=== PATIENT | female | born 1995 | race Caucasian/White ===

== ENCOUNTER 2022-07-08 02:55 | Inpatient (IN) ==
[2022-07-08] MEDS ORDERED: ACETAMINOPHEN 325 MG TABLET PO PRN ×2 (03:07→15:13)
[2022-07-08] MEDS ORDERED: METHYLERGONOVINE 0.2 MG/1 ML AMP IM PRN (03:07)
[2022-07-08] MEDS ORDERED: ONDANSETRON 4 MG/2 ML VIAL IV PRN (03:07)
[2022-07-08] MEDS ORDERED: CARBOPROST TROMETHAMINE 250 MCG/ML AMP IM PRN (03:07)
[2022-07-08] MEDS ORDERED: OXYTOCIN/LR 20 UNIT/1,000 ML BAG IV ONE ×2 (03:07→15:13)
[2022-07-08] MEDS ORDERED: BUTORPHANOL 2 MG/ML VIAL IV PRN (03:07)
[2022-07-08] MEDS ORDERED: TRANEXAMIC ACID 1,000 MG in SODIUM CHLORIDE 0.9% 100 ML IV PRN (03:07)
[2022-07-08] MEDS ORDERED: miSOPROStoL 200 MCG TABLET RECTAL PRN (03:07)
[2022-07-08] MEDS ORDERED: LACTATED RINGERS 1,000 ML IV SCH ×2 (03:30→09:00)
[2022-07-08] MEDS ORDERED: OXYTOCIN/LR 20 UNIT/1,000 ML BAG IV SCH (03:30)
[2022-07-08 04:19] LABS: Basophils % 0.3 % (0.0-0.8); Eosinophils # 0.1 10*3/uL (0.0-0.87); Eosinophils % 0.9 % (0.00-10.9); Hemoglobin 12.3 GM/DL (12.0-16.0); Immature Granulocytes % 0.8 %; Immature Granulocytes Absolute 0.06 #; Lymphocytes # 1.7 10*3/uL (1.4-4.0); Lymphocytes % 20.8 % (21.3-54.2); Mean Corpuscular HGB Conc 31.5 GM/DL (32-36); Mean Corpuscular Volume 77.5 FL (87-102); Mean Platelet Volume 11.8 FL (9.6-12.0); Monocytes # 0.6 10*3/uL (0.11-0.8); Monocytes % 7.7 % (1.7-12.7); Neutrophils % 69.5 % (38.7-73.9); Platelet Count 150 T/CUMM (130-400); Red Blood Count 5.03 MC/CUMM (3.8-5.5); Red Cell Distribution Width 14.6 % (9.3-17.3); White Blood Count 7.97 T/CUMM (4-12)
[2022-07-08] MEDS ORDERED: OXYTOCIN/LR 30 UNIT/1,000 ML BAG IV ONE (04:30)
[2022-07-08] MEDS ORDERED: LACTATED RINGERS 1,000 ML IV ONE (08:38)
[2022-07-08] MEDS ORDERED: ePHEDrine 50 MG/ML VIAL IV PRN (08:38)
[2022-07-08] MEDS ORDERED: CITRIC ACID/SODIUM CITRATE 30 ML UDCUP PO ONE (08:38)
[2022-07-08] MEDS ORDERED: FAMOTIDINE 20 MG/2 ML VIAL IV ONE (08:38)
[2022-07-08] MEDS ORDERED: diphenhydrAMINE 50 MG/1 ML VIAL IV PRN ×2 (08:39)
[2022-07-08] MEDS ORDERED: hydrOXYzine HCL 25 MG/1 ML VIAL IM PRN (08:39)
[2022-07-08] MEDS ORDERED: PROMETHAZINE 25 MG/1 ML VIAL IM ONE (08:39)
[2022-07-08] MEDS ORDERED: NALOXONE 0.4 MG/ML VIAL IV PRN (08:39)
[2022-07-08] MEDS ORDERED: fentaNYL 2 MCG/ROPIV 0.2% EPID 100 ML EPIDURAL SCH (09:00)
[2022-07-08 10:29] LABS: Bilirubin,Urine Negative (Negative); Blood, Urine Negative (Negative); Glucose,Urine (UA) Negative (Negative); Ketones,Urine Negative (Negative); Nitrite,Urine Negative (Negative); Protein,Urine Negative (Negative); Urine Appearance Clear (Clear); Urine Color Yellow (Yellow); Urine Specific Gravity 1.015 (1.001-1.035)
[2022-07-08 10:30] LABS: Urine Urobilinogen 0.2 eU/dL (<2.0)
[2022-07-08] MEDS ORDERED: SODIUM CHLORIDE 0.9% 0 ML IV ONE (11:51)
[2022-07-08] MEDS ORDERED: TRANEXAMIC ACID 1,000 MG/10 ML VIAL ONE (11:51)
[2022-07-08] MEDS ORDERED: miSOPROStoL 200 MCG TABLET ONE (11:51)
[2022-07-08] MEDS ORDERED: METHYLERGONOVINE 0.2 MG/1 ML AMP ONE (11:51)
[2022-07-08] MEDS ORDERED: CARBOPROST TROMETHAMINE 250 MCG/ML AMP IM ONE (11:52)
[2022-07-08 12:39] LABS: Cord Venous Blood HCO3 22.4 MMOL/L; Cord Venous Blood PCO2 45.4 MMHG; Cord Venous Blood PO2 26.3
[2022-07-08] MEDS ORDERED: oxyCODONE/ACETAMINOPHEN 5-325 MG TABLET PO PRN ×2 (15:13)
[2022-07-08] MEDS ORDERED: DIPH/TET/ACEL PERT BOOSTER VACCINE 0.5 ML VIAL IM ONE (15:13)
[2022-07-08] MEDS ORDERED: BISACODYL 10 MG SUPP RECTAL PRN (15:13)
[2022-07-08] MEDS ORDERED: LANOLIN 50% CREAM 0.3 OZ TUBE TOP PRN (15:13)
[2022-07-08] MEDS ORDERED: RHO(D) IMMUNE GLOBULIN 300 MCG SYRINGE IM ONE (15:13)
[2022-07-08] MEDS ORDERED: MEASLES/MUMPS/RUBELLA VACCINE 0.5 ML VIAL SUBCUT ONE (15:13)
[2022-07-08] MEDS ORDERED: HYDROCORTISONE 2.5% RECTAL CREAM 30 GM TUBE TOP PRN (15:13)
[2022-07-08] MEDS ORDERED: WITCH HAZEL PADS 100/JAR TOP PRN (15:13)
[2022-07-08] MEDS ORDERED: BENZOCAINE 20%/MENTHOL 0.5% SPRAY 56 GM CAN TOP PRN (15:13)
[2022-07-09] MEDS: IBUPROFEN 800 MG TABLET PO PRN ×2 (00:08→20:03)
[2022-07-09 06:17] LABS: Basophils % 0.3 % (0.0-0.8); Eosinophils # 0.1 10*3/uL (0.0-0.87); Eosinophils % 0.8 % (0.00-10.9); Hematocrit 37.1 VOL% (35.7-47.0); Hemoglobin 11.8 GM/DL (12.0-16.0); Immature Granulocytes % 0.5 %; Immature Granulocytes Absolute 0.05 #; Lymphocytes # 1.7 10*3/uL (1.4-4.0); Lymphocytes % 16.7 % (21.3-54.2); Mean Corpuscular HGB Conc 31.8 GM/DL (32-36); Mean Corpuscular Volume 78.3 FL (87-102); Mean Platelet Volume 11.8 FL (9.6-12.0); Monocytes # 0.7 10*3/uL (0.11-0.8); Monocytes % 6.7 % (1.7-12.7); Platelet Count 145 T/CUMM (130-400); Red Blood Count 4.74 MC/CUMM (3.8-5.5); Red Cell Distribution Width 14.5 % (9.3-17.3); White Blood Count 10.05 T/CUMM (4-12)
[2022-07-09] MEDS: DOCUSATE SODIUM 100 MG CAPSULE PO SCH ×2 (08:36→21:00)
[2022-07-10 07:34] VITALS: BP 100/56
[2022-07-10] MEDS: DOCUSATE SODIUM 100 MG CAPSULE PO SCH (09:40)
== END 2022-07-10 11:40 | disposition home or self-care (01) | DRG 807 ==
LOC: N.LDOUT 02:55 → N.LD 02:57 → N.OB 15:00
PROVIDERS: ADMIT Obstetrics & Gynecology; ATTEND Obstetrics & Gynecology